=== PATIENT | female | born 1945 | race Two or more races ===

== ENCOUNTER → 2021-08-06 | Outpatient (CLI) | payer BC ==
[~2021-08-06] MED LIST: Amoxicillin875 MG PO; DOXYCYCLINE HY100 M1 PO; LUMIGAN2.5 ML; METF500 PO; MUPIROCIN22 G9; PRED FORTE5 ML
== END ==
LOC: LAB SHORT 09:45 → LAB 09:45
DX: M79.674 Pain in right toe(s) (principal); Q66.70 Congenital pes cavus, unspecified foot; E11.621 Type 2 diabetes mellitus with foot ulcer; M79.89 Other specified soft tissue disorders
CPT/HCPCS: 87070; 87075; 87205

== ENCOUNTER 2021-08-10 14:33 | Inpatient (IN) | payer BC ==
[~2021-08-10] VITALS: Ht 175.3 cm; Wt 70.3 kg
[2021-08-10] MEDS ORDERED: Amoxicillin875 MG PO (14:44)
[2021-08-10] MEDS ORDERED: DOXYCYCLINE HY100 M1 PO (14:44)
[2021-08-10] MEDS ORDERED: MUPIROCIN22 G9 (14:44)
[2021-08-10] MEDS ORDERED: PRED FORTE5 ML (14:44)
[2021-08-10] MEDS ORDERED: LUMIGAN2.5 ML (14:44)
[2021-08-10] MEDS ORDERED: METF500 PO (14:45)
[2021-08-10 16:13] LABS: BASOPHILS ABSOLUTE AUTO 0.05 K/mm3 (0.00-0.23); BASOPHILS PERCENT AUTO 1 % (0-2); EOSINOPHILS ABSOLUTE AUTO 0.28 K/mm3 (0.00-0.68); EOSINOPHILS PERCENT AUTO 3 % (0-6); Hematocrit 38.1 % (33.0-51.0); IMMATURE GRAN ABSOLUTE AUTO 0.05 K/mm3 (0.00-0.10); IMMATURE GRAN PERCENT AUTO 1 % (0-1); LYMPHOCYTES ABSOLUTE AUTO 2.48 K/mm3 (0.84-5.20); LYMPHOCYTES PERCENT AUTO 28 % (21-46); MONOCYTES ABSOLUTE AUTO 0.58 K/mm3 (0.16-1.47); MONOCYTES PERCENT AUTO 7 % (4-13); Mean Corpuscular HGB Conc 34.1 g/dL (31.5-36.5); Mean Corpuscular Volume 97 fL (80-100); Mean Platelet Volume 9.6 fL (9.1-12.4); NEUTROPHILS ABSOLUTE AUTO 5.44 K/mm3 (1.96-9.15); NEUTROPHILS PERCENT AUTO 61 % (41-73); Platelet Count 638 K/mm3 (150-400); RDW Coefficient Variation 12.4 % (11.7-14.2); RDW Standard Deviation 43.8 fL (35.1-46.3); Red Blood Cell Count 3.94 M/mm3 (3.80-5.20); White Blood Cell Count 8.88 K/mm3 (4.00-11.30)
[2021-08-10 17:20] LABS: Albumin, Blood 3.4 g/dL (3.4-5.0); Albumin/Globulin Ratio 0.7 (0.8-1.8); Bilirubin, Total 0.2 mg/dL (0.1-1.0); Bun/Creatinine Ratio 26.8 (12.0-20.0); Calcium, Blood 9.6 mg/dL (8.5-10.1); Creatinine, Blood 0.45 mg/dL (0.40-1.00); Globulin, Blood 4.8 g/dL (2.2-4.0); Potassium, Blood 3.8 mmol/L (3.5-5.5); Total Protein, Blood 8.2 g/dL (6.4-8.2)
[2021-08-10 21:52] LABS: SARS-Cov-2 (COVID-19) PCR, MMC NEGATIVE (NEGATIVE)
[2021-08-11 04:55] LABS: Source, Urine Clean Catch
[2021-08-11 05:09] LABS: Bilirubin, Urine Neg (Neg); Blood, Urine Neg (Neg); Glucose Qualitative, Urine Neg (Neg); Ketones, Urine Neg (Neg); Leukocyte Esterase, Urine Neg (Neg); Nitrite, Urine Neg (Neg); Protein, Urine Neg (Neg); Urobilinogen, Urine NORM (Normal); pH, Urine 6.5 (5.0-8.0)
[2021-08-11 05:12] LABS: Appearance, Urine Clear (Clear); Color, Urine Pale Yellow (P-Yellow)
--- NOTE | 2021-08-11 05:32 | NUR ---
PT ADMIT FROM ER THIS SHIFT, A/O, SLIGHTLY [place]. STANDBY ASSIST TO BSC. DENIES PAIN SINCE ADMIT. IVF BOLUS X1 GIVEN THEN IVF STARTED. PT IS NPO AT THIS TIME.
[2021-08-11 05:38] LABS: BASOPHILS ABSOLUTE AUTO 0.05 K/mm3 (0.00-0.23); BASOPHILS PERCENT AUTO 1 % (0-2); EOSINOPHILS ABSOLUTE AUTO 0.17 K/mm3 (0.00-0.68); EOSINOPHILS PERCENT AUTO 2 % (0-6); Hematocrit 34.7 % (33.0-51.0); Hemoglobin 11.6 g/dL (11.5-16.0); IMMATURE GRAN ABSOLUTE AUTO 0.04 K/mm3 (0.00-0.10); IMMATURE GRAN PERCENT AUTO 0 % (0-1); LYMPHOCYTES PERCENT AUTO 18 % (21-46); MONOCYTES ABSOLUTE AUTO 0.71 K/mm3 (0.16-1.47); MONOCYTES PERCENT AUTO 6 % (4-13); Mean Corpuscular HGB 32.7 pg (26.0-34.0); Mean Corpuscular HGB Conc 33.4 g/dL (31.5-36.5); Mean Corpuscular Volume 98 fL (80-100); NEUTROPHILS ABSOLUTE AUTO 8.09 K/mm3 (1.96-9.15); NEUTROPHILS PERCENT AUTO 73 % (41-73); Platelet Count 560 K/mm3 (150-400); RDW Coefficient Variation 12.2 % (11.7-14.2); RDW Standard Deviation 44.1 fL (35.1-46.3); Red Blood Cell Count 3.55 M/mm3 (3.80-5.20); White Blood Cell Count 11.06 K/mm3 (4.00-11.30)
[2021-08-11 06:11] LABS: Albumin, Blood 2.9 g/dL (3.4-5.0); Albumin/Globulin Ratio 0.7 (0.8-1.8); Bilirubin, Total 0.3 mg/dL (0.1-1.0); Bun/Creatinine Ratio 18.6 (12.0-20.0); Calcium, Blood 9.2 mg/dL (8.5-10.1); Creatinine, Blood 0.43 mg/dL (0.40-1.00); Potassium, Blood 3.9 mmol/L (3.5-5.5); Total Protein, Blood 6.9 g/dL (6.4-8.2)
--- NOTE | 2021-08-11 13:31 | NUR ---
PATIENT DISCHARGED HOME Patient AOx4, resting comfortably in bed, IV NS infusing. C/o epigastric pain, PRN tylenol given, effective for pain. Vitals stable. Denies N/V. Lactic acid 2.4, reported result to MD. MD assessed patient and discharged home. Removed IV, cath intact, site WNL. Reviewed discharge teaching, pt verbalized understanding. Left unit at 1310.
== END 2021-08-11 13:30 | disposition home or self-care (01) | DRG 392 ==
LOC: ER 14:33 → MEDS 22:37
PROVIDERS: Emergency Medicine; Family Medicine; Student in an Organized Health Care Education/Training Program; Surgery; ADMIT Internal Medicine
DX: R10.13 Epigastric pain (principal); E87.2 Acidosis; Z20.822 Contact with and (suspected) exposure to COVID-19; L03.032 Cellulitis of left toe; E11.9 Type 2 diabetes mellitus without complications; R07.89 Other chest pain; R91.8 Other nonspecific abnormal finding of lung field; H40.9 Unspecified glaucoma; T38.3X5A Adverse effect of insulin and oral hypoglycemic [antidiabetic] drugs, initial encounter; Z98.890 Other specified postprocedural states; R11.2 Nausea with vomiting, unspecified; Z90.710 Acquired absence of both cervix and uterus; Z90.722 Acquired absence of ovaries, bilateral; Z88.2 Allergy status to sulfonamides; Z91.040 Latex allergy status; Z79.84 Long term (current) use of oral hypoglycemic drugs; Z79.899 Other long term (current) drug therapy
CPT/HCPCS: 36415; 71045; 71260; 74177; 80053; 81003; 83605; 83690; 84484; 85025; 93005; 93010; 96374-59; 96375; 96376; 99285-25; A9270; J1650; J2270; J2405; J2765; J7030; J7120; Q9967; U0004

== ENCOUNTER → 2023-06-17 | Outpatient (CLI) | payer BC | LOC: LAB 13:04 → LAB SHORT 13:04 | DX: M79.89 Other specified soft tissue disorders (principal); E11.621 Type 2 diabetes mellitus with foot ulcer; E11.42 Type 2 diabetes mellitus with diabetic polyneuropathy; M79.671 Pain in right foot; M79.674 Pain in right toe(s) ==

== ENCOUNTER → 2024-04-29 | Outpatient (CLI) | payer OTHER ==
[2024-04-29 17:39] LABS: BASOPHILS ABSOLUTE AUTO 0.05 K/mm3 (0.00-0.23); BASOPHILS PERCENT AUTO 1 % (0-2); EOSINOPHILS ABSOLUTE AUTO 0.49 K/mm3 (0.00-0.68); EOSINOPHILS PERCENT AUTO 6 % (0-6); Hematocrit 38.1 % (33.0-51.0); Hemoglobin 13.4 g/dL (11.5-16.0); IMMATURE GRAN ABSOLUTE AUTO 0.05 K/mm3 (0.00-0.10); IMMATURE GRAN PERCENT AUTO 1 % (0-1); LYMPHOCYTES ABSOLUTE AUTO 2.45 K/mm3 (0.84-5.20); LYMPHOCYTES PERCENT AUTO 32 % (21-46); MONOCYTES ABSOLUTE AUTO 0.59 K/mm3 (0.16-1.47); MONOCYTES PERCENT AUTO 8 % (4-13); Mean Corpuscular HGB 33.6 pg (26.0-34.0); Mean Corpuscular HGB Conc 35.2 g/dL (31.5-36.5); Mean Corpuscular Volume 96 fL (80-100); Mean Platelet Volume 9.9 fL (9.1-12.4); NEUTROPHILS ABSOLUTE AUTO 4.07 K/mm3 (1.96-9.15); NEUTROPHILS PERCENT AUTO 53 % (41-73); Platelet Count 425 K/mm3 (150-400); RDW Coefficient Variation 12.1 % (11.7-14.2); RDW Standard Deviation 42.6 fL (35.1-46.3); Red Blood Cell Count 3.99 M/mm3 (3.80-5.20)
== END ==
LOC: LAB SHORT 14:25 → LAB 14:25
PROVIDERS: Nurse Practitioner Family
DX: D75.839 Thrombocytosis, unspecified (principal); R73.01 Impaired fasting glucose
CPT/HCPCS: 83036; 85025